=== PATIENT | male | born 1975 ===

== ENCOUNTER 2025-03-06 00:15 | Outpatient (CLI) | payer OTHER, SELFPAY ==
--- NOTE | 2025-03-06 09:59 | DI.RAD_ITS ---
Exam(s) XR LUMBAR SPINE AP, LAT EXAM: XR LUMBAR SPINE AP, LAT CLINICAL HISTORY: LOW BACK PAIN RT HIP PELVIC PAIN Z02.71 ENCOUNTER DISABILITY. TECHNIQUE: 2D digital imaging was performed of the lumbar spine. Three images were obtained. AP, lateral and L5-S1 spot views were obtained. COMPARISON: No exams were available for comparison FINDINGS: BONES: No fracture or destructive lesion. There are endplate osteophytes at the lumbar spine particularly from L3-4 through L5-S1. Degenerative changes of the facets are seen at L5-S1. DISKS: There is disc space narrowing at L5-S1. ALIGNMENT: There is a mild right convex curvature of the thoracolumbar spine centered at L1-L2. There is L5 spondylolysis and grade 1 spondylolisthesis of L5 on S1. SOFT TISSUE: Normal. IMPRESSION: 1. [id number] degenerative changes in the lower lumbar spine. 2. L5 spondylolysis and grade 1 spondylolisthesis of L5 on S1. 3. Mild right convex thoracolumbar scoliosis. DATA REPOSITORY: RADIATION DOSE DELIVERED:
--- NOTE | 2025-03-06 09:59 | DI.RAD_ITS ---
Exam(s) XR HIP RT COMPLETE AP PELVIS EXAM: XR HIP RT COMPLETE AP PELVIS CLINICAL HISTORY: LOW BACK PAIN RT HIP PELVIC PAIN Z02.71 ENCOUNTER DISABILITY. TECHNIQUE: 2D digital imaging was performed of the right hip. Two images were obtained. AP pelvis and lateral right hip views were obtained. COMPARISON: No exams were available for comparison FINDINGS: BONES: No acute fracture is present. No bony destructive lesion is seen. JOINTS: There is chronic deformity of the right acetabulum. There is prominent spurring of the acetabular roofs bilaterally. There is mild lateral subluxation of the left femoral head relative to the acetabulum. In the left hip, there is prominence of the acetabular roof. The sacroiliac joints and symphysis pubis are unremarkable. SOFT TISSUE: Normal. IMPRESSION: 1. 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 2. Secondary degenerative changes are seen in the hips bilaterally, right greater than left. 3. Mild lateral subluxation of the left femoral head relative to the left acetabulum. DATA REPOSITORY: RADIATION DOSE DELIVERED:
== END 2025-03-06 00:35 ==
PROVIDERS: Visit Provider Pediatrics Pediatric Rheumatology
DX: M43.17 Spondylolisthesis, lumbosacral region (principal); M41.85 Other forms of scoliosis, thoracolumbar region; Z02.71 Encounter for disability determination; M16.11 Unilateral primary osteoarthritis, right hip
CPT/HCPCS: 72100; 73502